=== PATIENT | male | born 1990 | race Caucasian/White ===

== ENCOUNTER 2024-09-21 10:01 | Outpatient (AMB) | payer OTHER, SELFPAY ==
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
[2024-09-21 10:49] VITALS: BP 114/66; PULSE 86; RESP 16; TEMP 36.8; O2SAT 99
== END 2024-09-21 11:26 | disposition home or self-care (01) ==
LOC: HO.HMCSH 10:01
PROVIDERS: PCP Internal Medicine; Visit Provider Internal Medicine
DX: J39.8 Other specified diseases of upper respiratory tract (principal); F41.0 Panic disorder [episodic paroxysmal anxiety]; V89.2XXA Person injured in unspecified motor-vehicle accident, traffic, initial encounter

== ENCOUNTER → 2024-09-21 10:01 | Outpatient (BNVA) | payer OTHER, SELFPAY | PROVIDERS: PCP Internal Medicine; Visit Provider Internal Medicine ==

== ENCOUNTER 2024-10-22 08:54 | Outpatient (AMB) | payer OTHER, SELFPAY ==
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
[2024-10-22 09:18] VITALS: BP 139/94; PULSE 80; RESP 14; TEMP 36.8; O2SAT 98; BMI 19.9
== END 2024-10-22 10:05 | disposition home or self-care (01) ==
LOC: HO.HMCSH 08:54
PROVIDERS: PCP Internal Medicine; Visit Provider Physician Assistant Medical
DX: S06.30AA Unspecified focal traumatic brain injury with loss of consciousness status unknown, initial encounter (principal); Z93.0 Tracheostomy status; V89.2XXA Person injured in unspecified motor-vehicle accident, traffic, initial encounter; Z04.3 Encounter for examination and observation following other accident; J38.3 Other diseases of vocal cords; J38.01 Paralysis of vocal cords and larynx, unilateral; Z87.81 Personal history of (healed) traumatic fracture; S22.49XA Multiple fractures of ribs, unspecified side, initial encounter for closed fracture; S36.039A Unspecified laceration of spleen, initial encounter; J94.2 Hemothorax; F41.9 Anxiety disorder, unspecified; F32.A Depression, unspecified

== ENCOUNTER → 2024-10-22 08:54 | Outpatient (BNVA) | payer OTHER, SELFPAY | PROVIDERS: PCP Internal Medicine; Visit Provider Physician Assistant Medical | DX: J39.8 Other specified diseases of upper respiratory tract (principal); J38.3 Other diseases of vocal cords; J38.01 Paralysis of vocal cords and larynx, unilateral; S06.36AD Traumatic hemorrhage of cerebrum, unspecified, with loss of consciousness status unknown, subsequent encounter; S22.42XD Multiple fractures of ribs, left side, subsequent encounter for fracture with routine healing; S36.039D Unspecified laceration of spleen, subsequent encounter; V89.2XXD Person injured in unspecified motor-vehicle accident, traffic, subsequent encounter; J94.2 Hemothorax; F41.9 Anxiety disorder, unspecified; F32.A Depression, unspecified; G47.00 Insomnia, unspecified; Z79.899 Other long term (current) drug therapy; Z93.0 Tracheostomy status; Z87.81 Personal history of (healed) traumatic fracture; Z13.31 Encounter for screening for depression | CPT/HCPCS: 96127 ==

== ENCOUNTER 2024-10-25 08:32 | Outpatient (REF) | payer OTHER, SELFPAY ==
[2024-10-25 10:05] LABS: MANUAL DIFF FLAG NO
[2024-10-25 10:22] LABS: Basophils Percent Auto 0.6 % (0-2); Eosinophils Absolute Auto 0.4 X10*3/uL (0.0-0.4); Hematocrit 48.4 % (42.0-52.0); Hemoglobin 15.3 g/dl (14.0-18.0); Imm Gran Abs Auto 0.01 X10*3/uL (0.00-0.03); Imm Gran Pct Auto 0.1 % (0.0-0.4); Lymphocytes Absolute Auto 2.3 X10*3/uL (1.2-4.9); Lymphocytes Percent Auto 34.6 % (20-40); Mean Corpuscular HGB Conc 31.6 g/dl (31.0-36.0); Mean Corpuscular Hemoglobin 27.8 pg (27.0-33.0); Mean Platelet Volume 10.2 fL (9.4-12.4); Monocytes Absolute Auto 0.6 X10*3/uL (0.1-1.2); Monocytes Percent Auto 8.5 % (2-11); Neutrophils Absolute Auto 3.4 x10*3/uL (2.0-8.3); Neutrophils Percent Auto 50.2 % (45-73); Platelet Count 225 X10*3/uL (160-400); Red Cell Distribution Width 14.7 % (11.0-16.0); White Blood Count 6.7 X10*3/uL (4.8-10.8)
[2024-10-25 10:25] LABS: Estimated Average Glucose 100 mg/dL; Hemoglobin A1c % 5.1 % (<6.0)
[2024-10-25 11:17] LABS: Alanine Aminotransferase 22 U/L (0-40); Albumin Level 4.4 g/dL (3.5-5.0); Alkaline Phosphatase 125 U/L (39-117); Anion Gap 12 (12-20); Aspartate Amino Transferase 20 U/L (5-37); Bilirubin Direct < 0.2 mg/dL (0.0-0.5); Bilirubin Total 0.2 mg/dL (0.0-1.0); Blood Urea Nitrogen 14 mg/dL (9-16); C Reactive Protein 0.77 mg/dL (< or = 0.50); Calcium 9.7 mg/dL (8.4-10.2); Carbon Dioxide 28 mmol/L (22-29); Chloride 110 mmol/L (96-108); Cholesterol 164 mg/dL (<200); Estimated Glomerular Filt Rate > 60; Glucose Random 96 mg/dL (60-115); HDL Cholesterol 46 mg/dL (>40); LDL Cholesterol Calculated 87 mg/dL (<100); Magnesium 1.9 mg/dL (1.6-2.6); Potassium 4.3 mmol/L (3.3-5.1); Sodium 146 mmol/L (135-145); Triglycerides 158 mg/dL (<150); Vitamin D 25-OH Total 15.4 ng/mL (>30)
[2024-10-25 11:25] LABS: Folate 8.5 ng/mL (> or = 4.0); Vitamin B12 442 pg/mL (200-900)
== END 2024-10-25 08:33 | disposition home or self-care (01) ==
LOC: HO.HMGCLDS 08:32
PROVIDERS: PCP Internal Medicine; Visit Provider Physician Assistant Medical
DX: Z00.00 Encounter for general adult medical examination without abnormal findings (principal); Z12.5 Encounter for screening for malignant neoplasm of prostate; Z13.1 Encounter for screening for diabetes mellitus; Z13.220 Encounter for screening for lipoid disorders; Z13.29 Encounter for screening for other suspected endocrine disorder; Z13.0 Encounter for screening for diseases of the blood and blood-forming organs and certain disorders involving the immune mechanism
CPT/HCPCS: 36415; 80053; 80061; 82248; 82306; 82607; 82746; 83036; 83735; 84153; 84443; 85025; 86140

== ENCOUNTER 2024-12-22 13:15 | Outpatient (AMB) | payer OTHER, SELFPAY ==
[2024-12-22 13:15] VITALS: BP 130/83; PULSE 66; RESP 16; TEMP 36.7; O2SAT 98; BMI 20.9
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
--- OUTSIDE RECORDS SUMMARY | 2024-12-22 13:46 | XMS_ITS | Referral Summary ---
Author Organization [facility] Address [address] [place] [address] Care Team Providers Care Mold Engraver Name Role Phone Mason Green Primary Care Provider Encounters Date Type Department Care Team Description 11/24/2024 8:56 AM EDT - 11/24/2024 11:59 PM EDT Hospital Encounter [facility] [address] [place] [id number] In Home Sales Consultant: Gina Jara MD Vocal fold paresis, bilateral (Primary Dx) Discharge Disposition: Home or Self Care () 11/10/2024 10:32 AM EDT - 11/10/2024 11:59 PM EDT Hospital Encounter [facility] [address] [place] [id number] In Home Sales Consultant: Gina Jara MD Tracheostomy dependence (HCC) (Primary Dx) Discharge Disposition: Home or Self Care () 10/22/2024 Telephone [facility] [address] [place] [id number] In Home Sales Consultant: Kathy Adorno Telephone Intake, Staff from Last 3 Months Allergies No known active allergies Medications No known medications Social History Tobacco Use Types Packs/Day Years Used Date Smoking Tobacco: Never Assessed Sex and Gender Information Value Date Recorded Sex Assigned at Male 10/22/2024 3:19 PM EDT Legal Sex Male 9:32 AM EDT Gender Identity Male 11/09/2024 11:08 PM EDT Sexual Orientation Straight 11/09/2024 11 :08 PM EDT Last Filed Vital Signs Vital Sign Reading Time Taken Comments Blood Pressure 136/94 11/24/2024 9:05 AM EDT Pulse 87 11/24/2024 9:05 AM EDT Temperature - - Respiratory Rate - - Oxygen Saturation 100% 11/10/2024 11:42 AM EDT track Inhaled Oxygen Concentration - - Weight 69.4 kg (153 lb) 11/24/2024 9:05 AM EDT Height - - Body Mass Index - - Plan of Treatment Upcoming Encounters Date Type Department Care Team (Late st Contact Info) Description 02/09/2025 10:45 AM EDT Appointment [facility] [address] [place] [address] In Home Sales Consultant: Jaswinder Ramires PA [address] [place], [place] [id number] Insurance [facility] Care Teams Mold Engraver Relationship Specialty Start Date End Date Mason Green [address] [facility] [address] [place] [address] PCP - General Internal Medicine 10/22/24
== END 2024-12-22 14:06 | disposition home or self-care (01) ==
LOC: HO.HMCSH 13:15
PROVIDERS: PCP Internal Medicine; Visit Provider Physician Assistant Medical
DX: R56.9 Unspecified convulsions (principal); S22.49XA Multiple fractures of ribs, unspecified side, initial encounter for closed fracture; E55.9 Vitamin D deficiency, unspecified; Z93.0 Tracheostomy status

== ENCOUNTER → 2024-12-22 13:15 | Outpatient (BNVA) | payer OTHER, SELFPAY | PROVIDERS: PCP Internal Medicine; Visit Provider Physician Assistant Medical | DX: E55.9 Vitamin D deficiency, unspecified (principal); R56.9 Unspecified convulsions; Z87.81 Personal history of (healed) traumatic fracture | CPT/HCPCS: 96127 ==